=== PATIENT | male | born 1990 | race Caucasian/White ===

== ENCOUNTER 2024-05-02 13:31 | Emergency (ER) | payer OTHER, SELFPAY ==
[2024-05-02 13:41] VITALS: BP 141/85; PULSE 81; TEMP 36.7; O2SAT 98; BMI 30.2
--- NOTE | 2024-05-02 13:53 | ECG_ITS ---
The [facility] Test Date: 2024-05-02 Pat Name: LILIAN RAMOS Department: Room: - Gender: Male Manager Bilingual: : 1990 Requested By: ROSITA TERRAZAS Order Number: [id number] Reading MD: ROSITA TERRAZAS Measurements Intervals [place] Rate: 79 P: 30 IN: 140 QRS: 51 QRSD: 94 T: 23 QT: 354 QTc: 389 Interpretive Statements 1100 Sinus rhythm 9110 normal ECG No previous ECG available for comparison Electronically Signed On 05-04-2024 5:10:18 EST by ROSITA TERRAZAS
--- NOTE | 2024-05-02 14:05 | XR_ITS ---
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 COMPARISON: None. TECHNIQUE: AP erect portable chest radiograph performed. FINDINGS: The trachea is midline. The heart size is within normal limits. The cardiomediastinal silhouette is unremarkable. There is no consolidation, pleural effusion or pulmonary vascular congestion. No mass lesions are identified. There is no pneumothorax or osseous abnormality. XR/XR chest 1V IMPRESSION: Unremarkable AP erect portable chest radiograph. 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 No obvious lung nodules are identified on the portable chest radiograph. CT imaging would be more sensitive for detection of lung nodules and lymphadenopathy. Electronically authenticated by: RAHUL ORONA Date: 05/02/2024 15:25
--- NOTE | 2024-05-02 14:05 | CT_ITS ---
The [address] [address] Patient Name: LILIAN RAMOS MRN: [id number] date: 1990 Sex: M Assigned Patient Location: ED.MAIN Current Patient Location: ER Accession/Order Number: [id number] Exam Date: 05/02/2024 14:49 Report Date: 05/02/2024 16:11 At the request of: CHRISTIAN DOSS Procedure: CT abdomen pelvis wo con CT ABDOMEN/PELVIS WITHOUT IV CONTRAST. INDICATION: Back pain, dark urine COMPARISON: There are no other studies available for comparison. TECHNIQUE: Contiguous axial images were obtained from the lung bases to the pelvic floor without intravenous or oral contrast. Coronal and sagittal reformations are provided. FINDINGS: LOWER LUNGS: Clear. LIVER/BILIARY TREE: No discrete lesion. No intrahepatic ductal dilatation. GALLBLADDER: No significant gallbladder wall thickening. No radiopaque stone. CBD: Normal CBD. SPLEEN: Normal in size. PANCREAS: No appreciable peripancreatic fluid. No pancreatic ductal dilatation. No discrete lesion. ADRENALS: Normal. KIDNEYS: No hydronephrosis. No radiopaque calculus. STOMACH AND BOWEL: Stomach is unremarkable. No dilated bowel loops. No bowel wall thickening. APPENDIX: Normal appendix. PERITONEAL CAVITY: No fluid. No fat stranding. There are surgical clips in the retroperitoneum. ABDOMINAL WALL: No subcutaneous stranding. No subcutaneous fluid collection. LYMPH NODES: No mesenteric or retroperitoneal lymphadenopathy by CT criteria. ABDOMINAL AORTA: No aneurysm. PELVIS: No acute abnormality. MUSCULOSKELETAL: No acute osseous abnormality. CT/CT abdomen pelvis wo con IMPRESSION: No acute abnormality in the abdomen or pelvis. No obstructive uropathy. Electronically authenticated by: ELLIOTT LAGUNAS Date: 05/02/2024 16:11
--- NOTE | 2024-05-02 14:06 | ED_ITS ---
Documented by User: YOSHI Cross 05/02/24 16:40 HPI - Weakness General Chief complaint: Weakness Stated complaint: BACK PAIN/GENERAL WEAKNESS Time Seen by Provider: 05/02/24 13:52 Source: patient Mode of arrival: walk-in Limitations: no limitations History of Present Illness HPI Narrative: Patient is a 34-year-old male with a remote history of metastatic testicular cancer in remission who presents to the ER for a 3-day history of profound weakness, fatigue. He developed vomiting and diarrhea 3 days ago and was seen at [facility] where he had basic lab studies, urine specimen and respiratory swabs obtained. He states he was not given any IV fluids or had any imaging done. He states he was told his labs were unremarkable and he was discharged home. For the last 2 days he has had profound weakness, aching in the right flank and in his legs with significantly decreased urine production. He produced a small amount of urine today and his states that it was very dark. He has had no objective fevers, minimal cough, no persistent vomiting or diarrhea. He states the nausea is better and the back pain does not seem as bad today. He has no other major medical problems. He has not been treated for cancer for 6 years. Related Data Previous Rx's ?Medication ?Instructions ?Recorded ciprofloxacin HCl 500 mg tablet 500 mg PO Q12H #14 tabs 05/02/24 ondansetron 4 mg disintegrating 4 mg PO Q6H PRN nausea and 05/02/24 tablet vomiting #12 tabs Allergies Allergy/AdvReac Type Severity Reaction Status Date / Time No Known Drug Allergies Allergy Verified 05/02/24 13:41 Review of Systems ROS Constitutional Denies: fever or chills Ears, nose, mouth, and throat Denies: throat pain or nasal congestion Cardiovascular Denies: chest pain Respiratory Reports: cough; Denies: shortness of breath Gastrointestinal Reports: abdominal pain, nausea, vomiting and diarrhea Genitourinary Reports: difficulty urinating and decreased urine ouput Musculoskeletal Reports: back pain Integumentary/Breast Denies: rash Neurological Denies: numbness in extremities or weakness in extremities Hematologic/Lymphatic Denies: easy bruising or easy bleeding PFSH PFSH Social History Little interest or pleasure in doing things: not at all Feeling down, depressed, or hopeless: not at all Exam Narrative Exam Narrative: Gen.: Awake, alert, in no distress Head: Normocephalic, atraumatic ENT: Moist mucous membranes Respiratory: No respiratory distress, lungs clear bilaterally Cardio: Regular rate and rhythm Gastrointestinal: Abdomen is soft, nondistended and nontender to palpation Extremities: Moves extremities equally, no injuries noted Psych: Normal mood and affect Neuro: No focal neuro deficit Skin: Warm, dry, intact Constitutional Vital Signs, click to edit/add: Last Vital Signs Temp 98.0 F 05/02/24 13:41 Pulse 72 05/02/24 16:42 Resp 18 05/02/24 16:42 BP 114/82 05/02/24 16:42 Pulse Ox 98 05/02/24 16:42 O2 Del Method Room Air 05/02/24 14:18 Course Vital Signs Vital signs: Vital Signs Temperature 98.0 F 05/02/24 13:41 Pulse Rate 81 05/02/24 13:41 Respiratory Rate 18 05/02/24 13:41 Blood Pressure 141/85 05/02/24 13:41 Pulse Oximetry 98 05/02/24 13:41 Oxygen Delivery Method Room Air 05/02/24 13:41 Temperature 98.0 F 05/02/24 13:41 Pulse Rate 72 05/02/24 16:42 Respiratory Rate 18 05/02/24 16:42 Blood Pressure 114/82 05/02/24 16:42 Pulse Oximetry 98 05/02/24 16:42 Oxygen Delivery Method Room Air 05/02/24 14:18 MDM - Weakness MDM Narrative Medical decision making narrative: Patient was treated with IV fluids and Zofran. He had no significant complaints of pain. No vomiting or diarrhea in the ER. He is hemodynamically stable with normal vital signs. Laboratory studies reviewed and noted showing the patient has trace leukocytes and moderate bacteria with blood in his urine. The rest of his lab studies including mono testing are unremarkable. Patient was reevaluated by attending physician and will be discharged home with antibiotics for hemorrhagic cystitis, additional nausea medication as needed. He was encouraged to take fluids, follow-up with PCP and return to the ER if symptoms change or worsen. SHARED APC VISIT, PHYSICIAN ATTESTATION: [id number] I performed a substantive part of the MDM during the patient?s E/M visit. I personally evaluated and examined the patient. I personally made or approved the documented management plan and acknowledge its risk of complications. ? Medical Records Attestation: I reviewed the patient's medical records. Lab Data Attestation: I reviewed the patient's lab results. Labs: Lab Results 05/02/24 05/02/24 Range/Units 14:09 14:30 WBC 4.0 (4.0-11.0) 10^3/uL RBC 4.34 L (4.70-6.10) 10^6/uL Hgb 13.5 L (14.0-18.0) g/dL Hct 39.8 L (42.0-54.0) % MCV 91.7 (80.0-94.0) fL MCH 31.1 (25.9-34.0) pg MCHC 33.9 (29.9-35.2) g/dL RDW 11.7 (11.0-15.0) % Plt Count 142 L (150-450) 10^3/uL MPV 10.4 (9.5-13.5) fL Neut % (Auto) 54.8 (43.0-75.0) % Lymph % (Auto) 33.3 (20.5-60.0) % Stokes % (Auto) 9.6 (1.7-12.0) % Eos % (Auto) 1.5 (0.9-7.0) % Baso % (Auto) 0.5 (0.2-2.0) % Neut # (Auto) 2.2 (1.4-6.5) 10^3/uL Lymph # (Auto) 1.3 (1.2-3.8) 10^3/uL Stokes # (Auto) 0.4 (0.3-0.8) 10^3/uL Eos # (Auto) 0.1 (0.0-0.7) 10^3/uL Baso # (Auto) 0.0 (0.0-0.1) 10^3/uL Abs Immat Gran (auto) 0.01 (0.00-0.03) 10^3/uL Imm/Tot Granulo (auto) 0.3 (0.0-0.5) % PT 11.4 (9.0-11.6) sec INR 1.08 Sodium 141 (136-145) mmol/L Potassium 3.8 (3.5-5.1) mmol/L Chloride 104 (98-107) mmol/L Carbon Dioxide 27.2 (21.0-32.0) mmol/L Anion Gap 13.6 BUN 9.0 (7.0-18.0) mg/dL Creatinine 1.18 (0.70-1.30) mg/dL Est GFR ( Amer) >60 (>=60 mL/min/1.73m^2) Est GFR (Non-Af Amer) >60 (>=60 mL/min/1.73m^2) BUN/Creatinine Ratio 7.6 Glucose 99 (74-106) mg/dL Lactate 1.1 (0.4-2.0) mmol/L Calcium 8.8 (8.5-10.1) mg/dL Magnesium 2.2 (1.8-2.4) mg/dL Total Bilirubin 0.3 (0.2-1.0) mg/dL AST 24 (15-37) U/L ALT 42 (16-63) U/L Alkaline Phosphatase 55 (46-116) U/L Total Creatine Kinase 95 (39-308) U/L CK-MB (CK-2) <0.50 (<=3.60) ng/mL Myoglobin 30 (16-96) ng/mL Troponin I High Sens 5.1 (4.0-76.1) pg/mL Total Protein 7.1 (6.4-8.2) g/dL Albumin 3.7 (3.4-5.0) g/dL Globulin 3.4 g/dL Albumin/Globulin Ratio 1.1 Lipase 37.0 (16.0-77.0) U/L TSH 2.150 (0.358-3.740) uIU/mL Urine Color Yellow (YELLOW) Urine Clarity Sl cloudy (CLEAR) Urine pH 6.0 (5.0-9.0) Ur Specific [place] 1.020 (1.005-1.025) Urine Protein 100 A (NEG/TRACE) mg/dL Urine Glucose (UA) Negative (NEGATIVE) mg/dL Urine Ketones Negative (NEGATIVE) mg/dL Urine Occult Blood Large A (NEGATIVE) Urine Nitrite Negative (NEGATIVE) Urine Bilirubin Negative (NEGATIVE) Urine Urobilinogen 1.0 (0.2-1.0) EU/dL Ur Leukocyte Esterase Trace A (NEGATIVE) Urine RBC 50-75 A (0-2) #/HPF Urine WBC 0-2 A (NONE SEEN) #/HPF Ur Squamous Epith Cells Few A (NONE/RARE) #/LPF Ur Transition Epith Cell Rare A (NONE SEEN) #/LPF Urine Crystals None seen (None Seen) #/HPF Urine Bacteria Moderate A (NONE SEEN) #/HPF Urine Casts None seen (NONE SEEN) #/LPF Urine Mucus Small A (NONE SEEN) Ur Culture Indicated? Yes Monoscreen Negative (NEGATIVE) Imaging Data CT scan - abdomen: Attestation: I have reviewed the pertinent imaging results. Radiologist's impression: ITS Impressions Abdomen/Pelvis CT 05/02/24 14:05 IMPRESSION: No acute abnormality in the abdomen or pelvis. No obstructive uropathy. Electronically authenticated by: ELLIOTT LAGUNAS Date: 05/02/2024 16:11 Chest X-Ray 05/02/24 14:05 IMPRESSION: Unremarkable AP erect portable chest radiograph. 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 No obvious lung nodules are identified on the portable chest radiograph. CT imaging would be more sensitive for detection of lung nodules and lymphadenopathy. Electronically authenticated by: RAHUL ORONA Date: 05/02/2024 15:25 ECG Data Attestation: I personally reviewed and interpreted this ECG as follows: (Normal sinus rhythm at a rate of [address] elevation or ectopy. EKG reviewed by attending physician) Discharge Plan Discharge Chief Complaint: Weakness Clinical Impression: Generalized weakness, Acute hemorrhagic cystitis, Back pain Patient Disposition: Home, Self-Care Time of Disposition Decision: 16:38 Condition: Good Prescriptions / Home Meds: New ciprofloxacin HCl 500 mg tablet 500 mg PO Q12H Qty: 14 0RF ondansetron 4 mg tablet,disintegrating 4 mg PO Q6H PRN (Reason: nausea and vomiting) Qty: 12 0RF Print Language: Scottish Instructions: Urinary Tract Infection in Men (ED), Acute Low Back Pain (ED) Referrals: Physician,Non-Staff, MD [Physician] - 1 week Discharge Date/Time: 05/02/24 16:48 Documented by User: Juan Ahn MD 05/02/24 17:28 HPI - Weakness General Chief complaint: Weakness Stated complaint: BACK PAIN/GENERAL WEAKNESS Time Seen by Provider: 05/02/24 13:52 Related Data Previous Rx's ?Medication ?Instructions ?Recorded ciprofloxacin HCl 500 mg tablet 500 mg PO Q12H #14 tabs 05/02/24 ondansetron 4 mg disintegrating 4 mg PO Q6H PRN nausea and 05/02/24 tablet vomiting #12 tabs Allergies Allergy/AdvReac Type Severity Reaction Status Date / Time No Known Drug Allergies Allergy Verified 05/02/24 13:41 PFSH PFSH Social History Little interest or pleasure in doing things: not at all Feeling down, depressed, or hopeless: not at all Exam Constitutional Vital Signs, click to edit/add: Last Vital Signs Temp 98.0 F 05/02/24 13:41 Pulse 72 05/02/24 16:42 Resp 18 05/02/24 16:42 BP 114/82 05/02/24 16:42 Pulse Ox 98 05/02/24 16:42 O2 Del Method Room Air 05/02/24 14:18 Course Vital Signs Vital signs: Vital Signs Temperature 98.0 F 05/02/24 13:41 Pulse Rate 81 05/02/24 13:41 Respiratory Rate 18 05/02/24 13:41 Blood Pressure 141/85 05/02/24 13:41 Pulse Oximetry 98 05/02/24 13:41 Oxygen Delivery Method Room Air 05/02/24 13:41 Temperature 98.0 F 05/02/24 13:41 Pulse Rate 72 05/02/24 16:42 Respiratory Rate 18 05/02/24 16:42 Blood Pressure 114/82 05/02/24 16:42 Pulse Oximetry 98 05/02/24 16:42 Oxygen Delivery Method Room Air 05/02/24 14:18 MDM - Weakness MDM Narrative Medical decision making narrative: Patient was treated with IV fluids and Zofran. He had no significant complaints of pain. No vomiting or diarrhea in the ER. He is hemodynamically stable with normal vital signs. Laboratory studies reviewed and noted showing the patient has trace leukocytes and moderate bacteria with blood in his urine. The rest of his lab studies including mono testing are unremarkable. Patient was reevaluated by attending physician and will be discharged home with antibiotics for hemorrhagic cystitis, additional nausea medication as needed. He was encouraged to take fluids, follow-up with PCP and return to the ER if symptoms change or worsen. Dr AHN spoke to the patient and his girlfriend at bedside at discharge. Education on hemorrhagic cystitis was discussed at bedside, patient is aware that we will do urine culture. Patient is having mild discomfort when he has been urinating last 2 or 3 days. Patient was happy that lab work and a CT scan showed no other acute findings. Education was given to the patient on various reasons why he could possibly have urinary tract infection. Patient is not concerned about an STD. Patient was told if he starts having several UTIs the next 6 months, he should follow-up with urology for further testing. Patient understands this. No question at discharge. Patient does feel better after IV fluids. SHARED APC VISIT, PHYSICIAN ATTESTATION: [id number] I performed a substantive part of the MDM during the patient?s E/M visit. I personally evaluated and examined the patient. I personally made or approved the documented management plan and acknowledge its risk of complications. ? Lab Data Labs: Lab Results 05/02/24 05/02/24 Range/Units 14:09 14:30 WBC 4.0 (4.0-11.0) 10^3/uL RBC 4.34 L (4.70-6.10) 10^6/uL Hgb 13.5 L (14.0-18.0) g/dL Hct 39.8 L (42.0-54.0) % MCV 91.7 (80.0-94.0) fL MCH 31.1 (25.9-34.0) pg MCHC 33.9 (29.9-35.2) g/dL RDW 11.7 (11.0-15.0) % Plt Count 142 L (150-450) 10^3/uL MPV 10.4 (9.5-13.5) fL Neut % (Auto) 54.8 (43.0-75.0) % Lymph % (Auto) 33.3 (20.5-60.0) % Stokes % (Auto) 9.6 (1.7-12.0) % Eos % (Auto) 1.5 (0.9-7.0) % Baso % (Auto) 0.5 (0.2-2.0) % Neut # (Auto) 2.2 (1.4-6.5) 10^3/uL Lymph # (Auto) 1.3 (1.2-3.8) 10^3/uL Stokes # (Auto) 0.4 (0.3-0.8) 10^3/uL Eos # (Auto) 0.1 (0.0-0.7) 10^3/uL Baso # (Auto) 0.0 (0.0-0.1) 10^3/uL Abs Immat Gran (auto) 0.01 (0.00-0.03) 10^3/uL Imm/Tot Granulo (auto) 0.3 (0.0-0.5) % PT 11.4 (9.0-11.6) sec INR 1.08 Sodium 141 (136-145) mmol/L Potassium 3.8 (3.5-5.1) mmol/L Chloride 104 (98-107) mmol/L Carbon Dioxide 27.2 (21.0-32.0) mmol/L Anion Gap 13.6 BUN 9.0 (7.0-18.0) mg/dL Creatinine 1.18 (0.70-1.30) mg/dL Est GFR ( Amer) >60 (>=60 mL/min/1.73m^2) Est GFR (Non-Af Amer) >60 (>=60 mL/min/1.73m^2) BUN/Creatinine Ratio 7.6 Glucose 99 (74-106) mg/dL Lactate 1.1 (0.4-2.0) mmol/L Calcium 8.8 (8.5-10.1) mg/dL Magnesium 2.2 (1.8-2.4) mg/dL Total Bilirubin 0.3 (0.2-1.0) mg/dL AST 24 (15-37) U/L ALT 42 (16-63) U/L Alkaline Phosphatase 55 (46-116) U/L Total Creatine Kinase 95 (39-308) U/L CK-MB (CK-2) <0.50 (<=3.60) ng/mL Myoglobin 30 (16-96) ng/mL Troponin I High Sens 5.1 (4.0-76.1) pg/mL Total Protein 7.1 (6.4-8.2) g/dL Albumin 3.7 (3.4-5.0) g/dL Globulin 3.4 g/dL Albumin/Globulin Ratio 1.1 Lipase 37.0 (16.0-77.0) U/L TSH 2.150 (0.358-3.740) uIU/mL Urine Color Yellow (YELLOW) Urine Clarity Sl cloudy (CLEAR) Urine pH 6.0 (5.0-9.0) Ur Specific [place] 1.020 (1.005-1.025) Urine Protein 100 A (NEG/TRACE) mg/dL Urine Glucose (UA) Negative (NEGATIVE) mg/dL Urine Ketones Negative (NEGATIVE) mg/dL Urine Occult Blood Large A (NEGATIVE) Urine Nitrite Negative (NEGATIVE) Urine Bilirubin Negative (NEGATIVE) Urine Urobilinogen 1.0 (0.2-1.0) EU/dL Ur Leukocyte Esterase Trace A (NEGATIVE) Urine RBC 50-75 A (0-2) #/HPF Urine WBC 0-2 A (NONE SEEN) #/HPF Ur Squamous Epith Cells Few A (NONE/RARE) #/LPF Ur Transition Epith Cell Rare A (NONE SEEN) #/LPF Urine Crystals None seen (None Seen) #/HPF Urine Bacteria Moderate A (NONE SEEN) #/HPF Urine Casts None seen (NONE SEEN) #/LPF Urine Mucus Small A (NONE SEEN) Ur Culture Indicated? Yes Monoscreen Negative (NEGATIVE) Imaging Data CT scan - abdomen: Radiologist's impression: ITS Impressions Abdomen/Pelvis CT 05/02/24 14:05 IMPRESSION: No acute abnormality in the abdomen or pelvis. No obstructive uropathy. Electronically authenticated by: ELLIOTT LAGUNAS Date: 05/02/2024 16:11 Chest X-Ray 05/02/24 14:05 IMPRESSION: Unremarkable AP erect portable chest radiograph. 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 No obvious lung nodules are identified on the portable chest radiograph. CT imaging would be more sensitive for detection of lung nodules and lymphadenopathy. Electronically authenticated by: RAHUL ORONA Date: 05/02/2024 15:25 Discharge Plan Discharge Chief Complaint: Weakness Clinical Impression: Generalized weakness, Acute hemorrhagic cystitis, Back pain Patient Disposition: Home, Self-Care Time of Disposition Decision: 16:38 Condition: Good Prescriptions / Home Meds: New ciprofloxacin HCl 500 mg tablet 500 mg PO Q12H Qty: 14 0RF ondansetron 4 mg tablet,disintegrating 4 mg PO Q6H PRN (Reason: nausea and vomiting) Qty: 12 0RF Print Language: Scottish Instructions: Urinary Tract Infection in Men (ED), Acute Low Back Pain (ED) Referrals: Physician,Non-Staff, MD [Physician] - 1 week Discharge Date/Time: 05/02/24 16:48
[2024-05-02 14:17] LABS: Basophils Percent Auto 0.5 % (0.2-2.0); Eosinophils Absolute Auto 0.1 10^3/uL (0.0-0.7); Eosinophils Percent Auto 1.5 % (0.9-7.0); Hematocrit 39.8 % (42.0-54.0); Hemoglobin 13.5 g/dL (14.0-18.0); Immature Granulocytes Abs Auto 0.01 10^3/uL (0.00-0.03); Immature Granulocytes Pct Auto 0.3 % (0.0-0.5); Lymphocytes Absolute Auto 1.3 10^3/uL (1.2-3.8); Lymphocytes Percent Auto 33.3 % (20.5-60.0); Mean Corpuscular HGB Conc 33.9 g/dL (29.9-35.2); Mean Corpuscular Hemoglobin 31.1 pg (25.9-34.0); Mean Corpuscular Volume 91.7 fL (80.0-94.0); Mean Platelet Volume 10.4 fL (9.5-13.5); Monocytes Absolute Auto 0.4 10^3/uL (0.3-0.8); Monocytes Percent Auto 9.6 % (1.7-12.0); Neutrophils Absolute Auto 2.2 10^3/uL (1.4-6.5); Neutrophils Percent Auto 54.8 % (43.0-75.0); Platelet Count 142 10^3/uL (150-450); Red Blood Count 4.34 10^6/uL (4.70-6.10); Red Cell Distribution Width 11.7 % (11.0-15.0)
[2024-05-02 14:18] VITALS: BP 133/75; PULSE 82; O2SAT 98
[2024-05-02] MEDS: 0.9 % SODIUM CHLORIDE 1,000 ML 999 ML IV (14:25)
[2024-05-02] MEDS: ONDANSETRON PF 4 MG/2 ML VIAL IV (14:27)
[2024-05-02 14:34] LABS: Alanine Aminotransferase 42 U/L (16-63); Albumin Globulin Ratio 1.1; Albumin Level 3.7 g/dL (3.4-5.0); Alkaline Phosphatase 55 U/L (46-116); Anion Gap 13.6; Aspartate Amino Transferase 24 U/L (15-37); BUN Creatinine Ratio 7.6; Bilirubin Total 0.3 mg/dL (0.2-1.0); Calcium 8.8 mg/dL (8.5-10.1); Carbon Dioxide 27.2 mmol/L (21.0-32.0); Chloride 104 mmol/L (98-107); Estimated GFR (African America >60 (>=60 mL/min/1.73m^2); Estimated GFR (Non-African Ame >60 (>=60 mL/min/1.73m^2); Globulin 3.4 g/dL; Glucose 99 mg/dL (74-106); Potassium 3.8 mmol/L (3.5-5.1); Sodium 141 mmol/L (136-145); Total Protein 7.1 g/dL (6.4-8.2)
[2024-05-02 14:38] LABS: INR 1.08; Prothrombin Time 11.4 sec (9.0-11.6)
[2024-05-02 14:42] LABS: Lactate/Lactic Acid 1.1 mmol/L (0.4-2.0)
[2024-05-02 14:49] LABS: Bilirubin Urine NEGATIVE (NEGATIVE); Blood Urine LARGE (NEGATIVE); Clarity Urine SL CLOUDY (CLEAR); Color Urine YELLOW (YELLOW); Glucose Urine UA NEGATIVE (NEGATIVE); Ketones Urine NEGATIVE (NEGATIVE); Leukocyte Esterase Urine TRACE (NEGATIVE); Nitrite Urine NEGATIVE (NEGATIVE); Protein Urine 100 mg/dL (NEG/TRACE)
[2024-05-02 14:54] LABS: Creatine Kinase 95 U/L (39-308); Creatine Kinase MB <0.50 ng/mL (<=3.60); Magnesium 2.2 mg/dL (1.8-2.4); Myoglobin 30 ng/mL (16-96); Troponin I High Sensitivity 5.1 pg/mL (4.0-76.1)
[2024-05-02 14:55] LABS: Urine Microscopic Indicated YES
[2024-05-02 14:58] LABS: RBC Urine 50-75 #/HPF (0-2); WBC Urine 0-2 #/HPF (NONE SEEN)
[2024-05-02 14:59] LABS: Bacteria Urine MODERATE #/HPF (NONE SEEN); Crystals Seen? None Seen #/HPF (None Seen); Mucus Urine SMALL (NONE SEEN); Squamous Epithelial Cell Urine FEW #/LPF (NONE/RARE); Transitional Epi Cells Urine RARE #/LPF (NONE SEEN)
[2024-05-02 15:00] LABS: Cast Seen? NONE SEEN #/LPF (NONE SEEN); Urine Culture Indicated YES
[2024-05-02 15:29] VITALS: BP 118/72; PULSE 78; O2SAT 98
[2024-05-02 15:30] LABS: Internal Control Within Normal Limits; Mono Screen NEGATIVE (NEGATIVE)
[2024-05-02 16:42] VITALS: BP 114/82; PULSE 72; O2SAT 98
== END 2024-05-02 16:48 | disposition home or self-care (01) ==
PROVIDERS: Physician Assistant; Emergency Provider Emergency Medicine; Family Provider Family Medicine; PCP Family Medicine
DX: R53.1 Weakness (principal); N30.00 Acute cystitis without hematuria; M54.9 Dorsalgia, unspecified
CPT/HCPCS: 36415; 71045; 74176; 80053; 81001; 82550; 82553; 83605; 83690; 83735; 83874; 84443; 84484; 85025; 85610; 86308; 87086; 93005; 96361; 96374; 99285; J2405